=== PATIENT | female | born 1995 | race Caucasian/White ===

== ENCOUNTER 2017-01-30 00:55 | Emergency (ER) | payer SELFPAY ==
[~2017-01-30] VITALS: Ht 162.6 cm; Wt 74.8 kg
[~2017-01-30 00:55] MED LIST: ADVIL200 M1 PO
[2017-01-30 01:00] VITALS: BP 130/75
--- NOTE | 2017-01-30 01:05 | NUR ---
PATIENT AMBULATED TO ER BED 3.
--- NOTE | 2017-01-30 01:11 | NUR ---
Patient being evaluated by physician at bedside.
[2017-01-30 02:20] VITALS: BP 118/63
== END 2017-01-30 02:20 | disposition home or self-care (01) ==
LOC: MED 00:55
DX: R07.2 Precordial pain (principal); R06.02 Shortness of breath

== ENCOUNTER 2017-07-13 13:52 | Emergency (ER) | payer MEDICAID ==
[~2017-07-13] VITALS: Ht 160 cm; Wt 75.7 kg
[~2017-07-13 13:52] MED LIST changes: -ADVIL200 M1 PO; +IBUP-44 PO
[2017-07-13 14:06] VITALS: BP 126/76
[2017-07-13] MEDS: IBUPROFEN 600 MG TAB PO ONE (16:58)
[2017-07-13] MEDS: HYDROcodone/APAP 5/325 MG 1 TAB TAB PO ONE (16:58)
[2017-07-13 18:16] VITALS: BP 113/74
== END 2017-07-13 18:17 | disposition home or self-care (01) ==
LOC: MED 13:52
DX: S33.5XXA Sprain of ligaments of lumbar spine, initial encounter (principal); X50.0XXA Overexertion from strenuous movement or load, initial encounter; Y93.89 Activity, other specified; Y92.89 Other specified places as the place of occurrence of the external cause; Y99.8 Other external cause status
CPT/HCPCS: 72100; 81025; 99285

== ENCOUNTER 2018-11-18 13:01 | Emergency (ER) | payer MEDICAID ==
[~2018-11-18] VITALS: Ht 160 cm; Wt 80.3 kg
[2018-11-18 13:06] VITALS: BP 121/64
--- NOTE | 2018-11-18 13:11 | NUR ---
PT AMBULATES TO BED 10
--- NOTE | 2018-11-18 13:15 | NUR ---
PT IS A 22 Y/O FEMALE WHO PRESENTS TO THE ED C/O COUGH. PT STATES THAT IT HAS BEEN GOING ON X5 DAYS. PT REPORTS 10/10 ACHING LOW BACK PAIN WHEN COUGHING. PT DENIES CP, SOB, NOTED COUGH, LUNG SOUNDS CLEAR BL. PT ALSO C/O FEVER AND DECREASED APPETITE. PT AWAKE AND ALERT, RR EVEN/UNLABORED. PT REPOSITIONED FOR COMFORT, BED IN LOWEST POSITION. ER MD DR. THOMPSON NOTIFIED. WILL CONTINUE TO MONITOR. HX-DENIES RX--NONE
[2018-11-18] MEDS ORDERED: IBUPROFEN 600 MG TAB PO ONE (14:45)
[2018-11-18] MEDS ORDERED: hydrOXYzine HCL 25 MG TAB PO ONE (14:45)
[2018-11-18] MEDS ORDERED: ALBUTEROL SULFATE/IPRATROPIU 3 ML SOL IH ONE (14:45)
[2018-11-18 15:17] VITALS: BP 119/72
--- NOTE | 2018-11-18 15:18 | NUR ---
Patient discharged with v/s stable. Written and verbal after care instructions given and explained. Patient alert, oriented and verbalized understanding of instructions. Ambulatory with steady gait. All questions addressed prior to discharge. ID band removed. Patient advised to follow up with PMD. Rx of prednisone, azithromycin, promethazine given. Patient educated on indication of medication including possible reaction and side effects. Opportunity to ask questions provided and answered.
== END 2018-11-18 15:18 | disposition home or self-care (01) ==
LOC: MED 13:01
DX: J06.9 Acute upper respiratory infection, unspecified (principal); F17.200 Nicotine dependence, unspecified, uncomplicated; Z79.899 Other long term (current) drug therapy
CPT/HCPCS: 81002; 81025; 94640; 99283; J7620

== ENCOUNTER 2019-06-27 03:25 | Emergency (ER) | payer MEDICAID ==
[~2019-06-27] VITALS: Ht 162.6 cm; Wt 85.3 kg
[2019-06-27 03:26] VITALS: BP 124/82
--- NOTE | 2019-06-27 03:26 | NUR ---
TO BED # 11 AMBULATORY
--- NOTE | 2019-06-27 03:36 | NUR ---
PT TAKEN TO BED 3
--- NOTE | 2019-06-27 03:53 | NUR ---
23 Y/O FEMALE PRESENTS TO ED, C/O LEFT SIDE ABDOMINAL PAIN RADIATES TO RIGHT FLANK, 8/10. 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 C/O OF CONSTIPATION X2 DAYS. PT DENIES TAKING ANY MEDICATIONS FOR PAIN. ABDOMEN IS SOFT, PAIN ON PALPATION ON RUQ. ACTIVE BS ON ALL QUADRANTS. PT VSS. ERMD AWARE. WILL CONTINUE TO MONITOR.
--- NOTE | 2019-06-27 04:18 | NUR ---
Dr. Giraldo examining patient.
[2019-06-27] MEDS ORDERED: KETOROLAC 60 MG/2 ML VIAL IM ONE (04:20)
[2019-06-27 04:33] VITALS: BP 121/75
--- NOTE | 2019-06-27 04:33 | NUR ---
PT DISCHARGED WITH PAPERWORK. RX ESTIVEN CHEEMA. EDUCATED PT REGARDING MEDICATIONS AND S/E. EDUCATED PT REGARDING D/C DIAGNOSIS AND INSTRUCTIONS. PT VERBALIZED UNDERSTANDING OF TEACHING. TOLD PT TO FOLLOW UP WITH PCP AND WHEN TO RETURN TO ED. PT VSS. ALL QUESTIONS ANSWERED.
== END 2019-06-27 04:33 | disposition home or self-care (01) ==
LOC: MED 03:25
DX: N39.0 Urinary tract infection, site not specified (principal); Z79.1 Long term (current) use of non-steroidal anti-inflammatories (NSAID)
CPT/HCPCS: 81002; 81025; 96372; 99283; J1885